=== PATIENT | male | born 1980 ===

== ENCOUNTER 2024-07-09 14:27 | Emergency (ER) | payer SELFPAY ==
[2024-07-09 12:36] VITALS: BP 144/90; PULSE 113; RESP 16; TEMP 36.8; O2SAT 97
[2024-07-09 14:27] VITALS: BMI 23.6
[2024-07-09 14:29] VITALS: BP 137/91; PULSE 110; RESP 18; TEMP 36.8; O2SAT 97
--- NOTE | 2024-07-09 14:34 | EKG_ITS ---
[facility] Test Date: 2024-07-09 Pat Name: PARI FLORES Department: Room: - Gender: Male Education Professional: : 1986-07-09 Requested By: Edilson Sanchez ([facility]) Order Number: [id number] Reading MD: Edilson Sanchez ([facility]) Measurements Intervals [place] Rate: 109 P: 53 LA: 138 QRS: 30 QRSD: 89 T: 31 QT: 326 QTc: 440 Interpretive Statements SINUS TACHYCARDIA ABNORMAL RHYTHM ECG No previous ECG available for comparison /[id number]/[email or web address]/[id number]
--- NOTE | 2024-07-09 14:34 | XR_ITS ---
Examination: PA lateral chest 2 views TECHNIQUE: Upright PA lateral chest 2 views Exam date and time: July 09, 2024 1448 hours INDICATIONS: Chest pain today. FINDINGS: Normal heart size Lungs are clear. The osseous structures are intact IMPRESSION: No active disease
--- NOTE | 2024-07-09 14:35 | PD.EDRME ---
Rapid Medical Screening Exam RME Arrival date/time: 07/09/24 14:27 38-year-old male BIBA due to being found in [employer] drinking was brought to emergency department for evaluation. Patient on arrival GCS 14 not answering questions and visibly soiled. Chief Complaint: General Adult/Misc Complain Vital signs: Vital Signs Temperature 98.2 F 07/09/24 12:36 Pulse Rate 113 H 07/09/24 12:36 Respiratory Rate 16 07/09/24 12:36 Blood Pressure 144/90 H 07/09/24 12:36 Pulse Oximetry (%) 97 07/09/24 12:36 Oxygen Delivery Method Room Air 07/09/24 12:36 Vital signs reviewed by provider: Yes
[2024-07-09 15:34] LABS: Basophils % (Auto) 0 % (0-2.5); Eosinophils % (Auto) 0 % (0-10); Hematocrit 43.9 % (41.0-53.0); Hemoglobin 14.6 g/dL (13.5-16.0); Immature Granulocytes % (Auto) 0 % (0-0); Immature Granulocytes Auto 0.01 Thou/mm3 (0.00-0.00); Lymphocytes # (Auto) 3.2 Thou/mm3 (1.0-4.8); Lymphocytes % (Auto) 45 % (10-50); Mean Corpuscular HGB Conc 33.3 g/dl (31.0-37.0); Mean Corpuscular Hemoglobin 25.6 pg (25.0-35.0); Mean Corpuscular Volume 77 fL (80-100); Monocytes # (Auto) 0.3 Thou/mm3 (0.0-0.8); Monocytes % (Auto) 4 % (0-12); Neutrophils # (Auto) 3.6 Thou/mm3 (1.8-7.7); Neutrophils % (Auto) 51 % (37-80); Nucleated Red Blood Cell % 0 /100 WBC (0); Platelet Count 188 Thou/mm3 (140-440); RDW Standard Deviation 41.3 fL (35.1-43.9); White Blood Count 7.1 Thou/mm3 (3.8-10.6)
[2024-07-09 15:43] LABS: INR 1.1 (0.9-1.3); Partial Thromboplastin Time 26.5 Seconds (22.0-36.0); Prothrombin Time 11.8 Seconds (9.0-12.2)
[2024-07-09 15:44] LABS: B-Type Natriuretic Peptide < 20 pg/mL (0-100)
[2024-07-09 15:57] LABS: Alanine Aminotransferase 95 U/L (10-49); Albumin, Serum 4.9 gm/dL (3.5-5.0); Albumin/Globulin Ratio 1.4 (1.2-2.2); Alcohol, Blood Medical 384.1 mg/dL (0-10.0); Alkaline Phosphatase 133 U/L (46-116); Anion Gap 11 (7-16); Aspartate Amino Transferase 113 U/L (0-34); BUN/Creatinine Ratio 7 Ratio (12-20); Bilirubin,Total 0.5 mg/dL (0.3-1.2); Blood Urea Nitrogen 7 mg/dL (9-23); Carbon Dioxide 28.1 mMol/L (20.0-31.0); Chloride 104 mMol/L (98-107); Globulin 3.4 gm/dL (2.3-3.5); Glucose 110 mg/dL (74-106); Osmolality,Calculated 283 (275-295); Potassium 3.3 mMol/L (3.4-5.1); Sodium 143 mMol/L (136-145); Total Protein 8.3 gm/dL (5.7-8.2); Troponin I < 0.020 ng/mL (0.0-0.045); eGFR > 60 See Note
--- NOTE | 2024-07-09 16:15 | PC.NURSE ---
pt called back for ct, no answer at this time in lobby/outside
--- NOTE | 2024-07-09 17:15 | PC.NURSE ---
called for pt from lobby/outside, no answerx2 @ [id number]
== END 2024-07-09 17:28 | disposition left against medical advice (07) ==
PROVIDERS: Emergency Provider Emergency Medicine
DX: F10.10 Alcohol abuse, uncomplicated (principal); R00.0 Tachycardia, unspecified; R07.9 Chest pain, unspecified; Y90.8 Blood alcohol level of 240 mg/100 ml or more; Z53.29 Procedure and treatment not carried out because of patient's decision for other reasons
CPT/HCPCS: 36415; 71046; 80053; 80307; 80320; 81001; 83735; 83880; 84484; 85025; 85610; 85730; 93005; 99281; G0480